=== PATIENT | female | born 1945 | race Caucasian/White ===

== ENCOUNTER → 2023-10-20 14:26 | Outpatient (CLI) | payer MEDICARE, OTHER, SELFPAY ==
[2023-10-20 15:17] LABS: INR 1.6 (0.9-1.3); Prothrombin Time 18.9 SECONDS (9.4-12.5)
== END ==
PROVIDERS: Referring Provider Internal Medicine Cardiovascular Disease; Visit Provider Internal Medicine Cardiovascular Disease
DX: I48.91 Unspecified atrial fibrillation (principal)
CPT/HCPCS: 36415; 85610

== ENCOUNTER → 2025-01-21 09:39 | Outpatient (CLI) | payer MEDICARE, SELFPAY ==
[2025-01-21 10:25] LABS: INR 1.8 (0.9-1.3); Prothrombin Time 19.9 SECONDS (9.4-12.5)
== END ==
LOC: LAB 09:44
PROVIDERS: Referring Provider Internal Medicine Cardiovascular Disease; Visit Provider Internal Medicine Cardiovascular Disease
DX: I48.0 Paroxysmal atrial fibrillation (principal); Z79.01 Long term (current) use of anticoagulants
CPT/HCPCS: 36415; 85610